=== PATIENT | female | born 1980 | race Caucasian/White ===

== ENCOUNTER 2019-03-18 18:30 | Emergency (ER) | payer BC ==
[2019-03-18 19:46] LABS: Basophils % 0.6 % (0-1.3); Hematocrit 35.7 % (36.0-45.0); Lymphocytes % 37.5 % (15.3-44.8); MPV 8.5 fL (7.6-11.3); RBC Red Blood Cell Count 4.02 M/uL (3.86-4.86)
[2019-03-18 19:54] LABS: Urine Blood 3+ (NEG); Urine Glucose NEGATIVE (NEG); Urine Protein NEGATIVE (NEG)
[2019-03-18 20:03] LABS: Potassium 3.6 mmol/L (3.5-5.1)
--- NOTE | 2019-03-18 20:22 | ER ---
Nurse's Notes [facility] Name: Libby Washburn Age: 38 yrs Sex: Female : 1980 Arrival Date: 03/18/2019 Time: 18:33 Bed 8 Private MD: Diagnosis: Abnormal uterine and vaginal bleeding, unspecified Presentation: 03/18 18:34 Presenting complaint: Patient states: i have my period Monday, yesterday, it was so hj heavy and had quater of clots, and used a new pads every hour; reports abd cramps; denies N/V; reports dizziness;. Transition of care: patient was not received from another setting of care. Onset of symptoms was March 18, 2019. Risk Assessment: Do you want to hurt yourself or someone else? Patient reports no desire to harm self or others. Initial Sepsis Screen: Does the patient meet any 2 criteria? No. Patient's initial sepsis screen is negative. Does the patient have a suspected source of infection? No. Patient's initial sepsis screen is negative. Care prior to arrival: None. 18:34 Method Of Arrival: Ambulatory 18:34 Acuity: KIRAN 3 hj Triage Assessment: 18:53 General: Appears in no apparent distress. Behavior is calm, cooperative, appropriate tw2 for age. Pain: Denies pain. Neuro: Reports dizziness. : Reports vaginal bleeding that is bright red, with clots, heavy flow. 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 - Social history:: Smoking status: . - Ebola Screening: : Patient denies travel to an Ebola-affected area in the 21 days before illness onset. Screenin:53 Abuse screen: Denies threats or abuse. Nutritional screening: No deficits noted. tw2 Tuberculosis screening: No symptoms or risk factors identified. Fall Risk None identified. Assessment: 19:25 General: Appears in no apparent distress. Behavior is calm, cooperative, anxious. Pain: ak1 Denies pain. Neuro: No deficits noted. Cardiovascular: No deficits noted. Respiratory: No deficits noted. GI: No signs and/or symptoms were reported involving the gastrointestinal system. : pt reports heavy vaginal bleeding. pt stated 1 pad per hour. pt has appointment with NEWS CAMERA PERSON Monday. : Reports vaginal bleeding that is heavy flow. EENT: No signs and/or symptoms were reported regarding the EENT system. Derm: No signs and/or symptoms reported regarding the dermatologic system. Musculoskeletal: No signs and/or symptoms reported regarding the musculoskeletal system. 20:30 Reassessment: Patient appears in no apparent distress at this time. No changes from ak1 previously documented assessment. Patient and/or family updated on plan of care and expected duration. Pain level reassessed. Patient is alert, oriented x 3, equal unlabored respirations, skin warm/dry/pink. Vital Signs: 18:36 BP 140 / 72; Pulse 86; Resp 18; Temp 98.4(TE); Pulse Ox 100% on R/A; Weight 88.45 kg; hj Height 5 ft. 1 in. (154.94 cm); Pain 5/10; 20:29 BP 119 / 77; Pulse 76; Resp 18; Temp 98.6; Pulse Ox 97% on R/A; Pain 0/10; ak1 18:36 Body Mass Index 36.84 (88.45 kg, 154.94 cm) ED Course: 18:33 Patient arrived in ED. rg4 18:36 Triage completed. hj 18:36 Arm band placed on right wrist. hj 18:42 Bed in low position. Call light in reach. tw2 18:49 Julio C Block NP is PHCP. pm1 18:49 Avni Naqvi MD is Attending Physician. pm1 19:12 Bernarda Telles, RN is Primary Nurse. ak1 19:24 Initial lab(s) drawn, by la, sent to lab. Urine collected: clean catch specimen. ak1 Inserted saline lock: 20 gauge in right antecubital area, using aseptic technique. Blood collected. 19:27 No provider procedures requiring assistance completed. ak1 20:30 IV discontinued, intact, bleeding controlled, No redness/swelling at site. Pressure ak1 dressing applied. Administered Medications: No medications were administered Outcome: 20:21 Discharge ordered by . pm1 20:30 Discharged to home ambulatory, with family. ak1 20:30 Condition: good 20:30 Discharge instructions given to patient, family, Instructed on discharge instructions, follow up and referral plans. Demonstrated understanding of instructions, follow-up care. 20:30 Patient left the ED. ak1 Signatures: Bernarda Telles RN RN ak1 Stevo Morales RN RN hj Julio C Block NP STRATEGIC PLANNING MANAGER pm1 Stacey Cheema RN RN tw2 Lily Dickson rg4 Corrections: (The following items were deleted from the chart) 18:38 18:36 Pulse 86bpm; Resp 18bpm; Pulse Ox 100% RA; Temp 98.4F Temporal; 88.45 kg; Height hj 5 ft. 1 in.; BMI: 36.8; Pain 5/10; hj
--- NOTE | 2019-03-18 20:23 | EDPHYS ---
Physician Documentation [facility] Name: Libby Washburn Age: 38 yrs Sex: Female : 1980 Arrival Date: 03/18/2019 Time: 18:33 Bed 8 Private MD: ED Physician Avni Naqvi HPI: 03/18 19:18 This 38 yrs old Female presents to ER via Ambulatory with complaints of pm1 Vaginal Bleeding, Dizziness. 19:18 The patient presents with vaginal bleeding that is heavy, with clots. pm1 19:18 Onset: The symptoms/episode began/occurred yesterday. Modifying factors: The symptoms pm1 are alleviated by nothing, the symptoms are aggravated by nothing. Associated signs and symptoms: Pertinent positives: dizziness, Pertinent negatives: dysuria, fever. Severity of symptoms: in the emergency department the symptoms are unchanged. The patient is sexually active, reportedly has a single partner. The patient's method of control includes with vasectomy 15 years ago. The patient has experienced similar episodes in the past, a few times. Family history of early menopasue. 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 - Social history:: Smoking status: . - Ebola Screening: : Patient denies travel to an Ebola-affected area in the 21 days before illness onset. ROS: 19:18 Positive for vaginal bleeding, Negative for urinary symptoms. pm1 19:18 Constitutional: Negative for fever, chills, and weight loss, Eyes: Negative for injury, pain, redness, and discharge, ENT: Negative for injury, pain, and discharge, Neck: Negative for injury, pain, and swelling, Cardiovascular: Negative for chest pain, palpitations, and edema, Respiratory: Negative for shortness of breath, cough, wheezing, and pleuritic chest pain. 19:18 Back: Negative for injury and pain, : Negative for injury, bleeding, discharge, and swelling, MS/Extremity: Negative for injury and deformity, Skin: Negative for injury, rash, and discoloration, Neuro: Negative for headache, weakness, numbness, tingling, and seizure. 19:18 Abdomen/GI: Positive for abdominal cramps, with normal menses. Exam: 19:18 Constitutional: This is a well developed, well nourished patient who is awake, alert, pm1 and in no acute distress. Head/Face: Normocephalic, atraumatic. Neck: Trachea midline, no thyromegaly or masses palpated, and no cervical lymphadenopathy. Supple, full range of motion without nuchal rigidity, or vertebral point tenderness. No Meningismus. Chest/axilla: Normal chest wall appearance and motion. Nontender with no deformity. No lesions are appreciated. Cardiovascular: Regular rate and rhythm with a normal S1 and S2. No gallops, murmurs, or rubs. Normal PMI, no JVD. No pulse deficits. Respiratory: Lungs have equal breath sounds bilaterally, clear to auscultation and percussion. No rales, rhonchi or wheezes noted. No increased work of breathing, no retractions or nasal flaring. Abdomen/GI: Soft, non-tender, with normal bowel sounds. No distension or tympany. No guarding or rebound. No evidence of tenderness throughout. Back: No spinal tenderness. No costovertebral tenderness. Full range of motion. Skin: Warm, dry with normal turgor. Normal color with no rashes, no lesions, and no evidence of cellulitis. MS/ Extremity: Pulses equal, no cyanosis. Neurovascular intact. Full, normal range of motion. 19:18 Neuro: Orientation: is normal, Motor: is normal, moves all fours, Gait: is steady, at a normal pace, without difficulty. Vital Signs: 18:36 BP 140 / 72; Pulse 86; Resp 18; Temp 98.4(TE); Pulse Ox 100% on R/A; Weight 88.45 kg; hj Height 5 ft. 1 in. (154.94 cm); Pain 5/10; 20:29 BP 119 / 77; Pulse 76; Resp 18; Temp 98.6; Pulse Ox 97% on R/A; Pain 0/10; ak1 18:36 Body Mass Index 36.84 (88.45 kg, 154.94 cm) MDM: 18:55 Patient medically screened. [facility] 20:05 Data reviewed: vital signs. Data interpreted: Pulse oximetry: on room air is 100 %. pm1 Interpretation: normal. Counseling: I had a detailed discussion with the patient and/or guardian regarding: lab results. 20:05 Counseling: I had a detailed discussion with the patient and/or guardian regarding: the pm1 historical points, exam findings, and any diagnostic results supporting the discharge/admit diagnosis, the need for outpatient follow up, for definitive care, an OB/Gyne specialist, to return to the emergency department if symptoms worsen or persist or if there are any questions or concerns that arise at home. ED course: VSS, Patient without anemia. Will discharge patient home to follow up with paper cutter operator for further evaluation . 03/18 19:09 Order name: CBC with Diff; Complete Time: 19:56 pm1 03/18 19:09 Order name: BMP; Complete Time: 20:04 pm1 03/18 18:50 Order name: Urine Dipstick-Ancillary (obtain specimen); Complete Time: 18:59 pm1 03/18 18:50 Order name: Urine Test (obtain specimen); Complete Time: 18:59 pm1 03/18 19:14 Order name: Urine Dipstick--Ancillary (enter results); Complete Time: 19:56 ag4 03/18 19:14 Order name: Urine --Ancillary (enter results); Complete Time: 19:56 ag4 03/18 19:09 Order name: IV Saline Lock; Complete Time: 19:24 pm1 Administered Medications: No medications were administered Disposition: 03/19 06:47 Co-signature as Attending Physician, Avni Naqvi MD I agree with the assessment and marietta plan of care. Disposition: 03/18/19 20:21 Discharged to Home. Impression: Abnormal uterine and vaginal bleeding, unspecified. - Condition is Stable. - Discharge Instructions: Abnormal Uterine Bleeding. - Medication Reconciliation Form, Thank You Letter, Antibiotic Education, Prescription Opioid Use form. - Work release form (03/18/19 20:31). ak1 - Follow up: Emergency Department; When: As needed; Reason: Worsening of condition. Follow up: Private Physician; When: 2 - 3 days; Reason: Recheck today's complaints, Continuance of care, Re-evaluation by your physician. - Problem is new. - Symptoms have improved. Signatures: Dispatcher [employer] Avni Ewing MD MD cha Krenek, Amber, RN RN ak1 Stevo Morales RN RN Julio C Beavers NP EMPLOYMENT OFFICER pm1 Stacey Cheema RN RN tw2 Corrections: (The following items were deleted from the chart) 03/18 20:30 20:21 03/18/2019 20:21 Discharged to Home. Impression: Abnormal uterine and vaginal ak1 bleeding, unspecified. Condition is Stable. Forms are Medication Reconciliation Form, Thank You Letter, Antibiotic Education, Prescription Opioid Use. Follow up: Emergency Department; When: As needed; Reason: Worsening of condition. Follow up: Private Physician; When: 2 - 3 days; Reason: Recheck today's complaints, Continuance of care, Re-evaluation by your physician. Problem is new. Symptoms have improved. pm1
== END 2019-03-18 20:30 | disposition home or self-care (01) ==
LOC: ER 18:30
DX: N93.9 Abnormal uterine and vaginal bleeding, unspecified (principal); E78.5 Hyperlipidemia, unspecified
CPT/HCPCS: 36415; 80048; 81003; 81025; 85025; 99283

== ENCOUNTER 2019-07-18 06:14 | Day surgery (SDC) | payer BC ==
[2019-07-15 10:32] LABS: Urine Appearance CLEAR; Urine Bilirubin NEGATIVE (NEG); Urine Blood 1+ (NEG); Urine Color YELLOW; Urine Glucose NEGATIVE (NEG); Urine Protein NEGATIVE (NEG); Urine Specific Gravity 1.015 (1.005-1.030); Urine Urobilinogen 0.2 mg/dL (0.2-1.0); Urine pH 7.5 (5.0-7.0)
[2019-07-15 10:35] LABS: Absolute Lymphocytes (CBC) 2.2 K/uL (0.7-4.9); Basophils % 0.5 % (0-1.3); Hematocrit 42.1 % (36.0-45.0); Lymphocytes % 37.4 % (15.3-44.8); RBC Red Blood Cell Count 4.77 M/uL (3.86-4.86)
[2019-07-15 10:37] LABS: Urine Microscopic Reflex ORDER UMIC
[2019-07-15 11:42] LABS: Urine Bacteria <20 /HPF (<20); Urine Culture Reflex Order NOT NEEDED; Urine RBC <5 /HPF (NONE SEEN)
[~2019-07-18 06:14] MED LIST: Ringers Lactate 0 ML IV ONE; SCOPOLAMINE HYDROBROMIDE PATCH TD ONE
[2019-07-18 06:34] LABS: Specific Gravity 1.015 (1.005-1.030)
[2019-07-18] MEDS ORDERED: SCOPOLAMINE HYDROBROMIDE PATCH TD ONE (06:52)
[2019-07-18] MEDS ORDERED: Ringers Lactate 1,000 ML IV ONE ×2 (06:52→09:16)
[2019-07-18] MEDS ORDERED: CEFAZOLIN/SWI 2gm 2 GM/20 ML SYR ONE (06:53)
[2019-07-18] MEDS ORDERED: propofoL 200 MG/20 ML VIAL IV ONE (07:05)
[2019-07-18] MEDS ORDERED: MIDAZOLAM HCL 2 MG/2 ML INJ ONE (07:05)
[2019-07-18] MEDS ORDERED: ROCURONIUM 50 MG/5 ML VIAL IV ONE ×2 (07:05→10:06)
[2019-07-18] MEDS ORDERED: dexAMETHasone 10 MG/ML VIAL ONE (07:05)
[2019-07-18] MEDS ORDERED: ONDANSETRON 4 MG/2 ML VIAL ONE ×2 (07:05→11:11)
[2019-07-18] MEDS ORDERED: GLYCOPYRROLATE 0.2 MG/ML SYR ONE ×2 (07:05→10:18)
[2019-07-18] MEDS ORDERED: LIDOCAINE 2% MPF 5 ML VIAL ONE (07:05)
[2019-07-18] MEDS ORDERED: FENTANYL CITR 250 MCG/5 ML ONE (07:05)
[2019-07-18] MEDS ORDERED: BUPIVACAINE 0.25% PF 30 ML VIAL ONE (07:09)
[2019-07-18] MEDS ORDERED: CEFAZOLIN/SWI 1gm 1 GM/10 ML SYR ONE (07:43)
[2019-07-18] MEDS ORDERED: VASOPRESSIN 20 UNIT/ML VIAL ONE (10:15)
[2019-07-18] MEDS ORDERED: NEOSTIGMINE 1 MG/ML -10 ML VIAL ONE (10:18)
[2019-07-18] MEDS ORDERED: KETOROLAC 30 MG/ML INJ ONE (10:18)
[2019-07-18] MEDS: HYDROMORPHONE HCL 1 MG/ML INJ ONE ×2 (11:11→11:17)
[2019-07-18] MEDS ORDERED: PROMETHAZINE 25 MG/ML VIAL ONE (11:22)
[2019-07-18] MEDS ORDERED: HYDROMORPHONE HCL 1 MG/ML INJ ONE (11:25)
[2019-07-18] MEDS ORDERED: HYDROCODONE/APAP 5/325 MG TAB ONE (15:05)
[2019-07-18 16:12] VITALS: BP 155/72; O2SAT 100
[2019-07-18 19:37] VITALS: TEMP 97.8
--- NOTE | 2019-07-18 22:20 | OP ---
Date of Procedure: 07/18/2019 Surgeon: Marly Carter MD [employer] Display Builder: Kelsea Walker Preoperative Diagnoses: Abnormal uterine bleeding (AUB -- A/O), menorrhagia, left lower quadrant gaurang n and dysmenorrhea, stress urinary incontinence and overactive bladder. Postoperative Diagnoses: Abnormal uterine bleeding (AUB -- A/O), menorrhagia, left lower quadrant pa in and dysmenorrhea, stress urinary incontinence and overactive bladder. Procedures Performed: Total laparoscopic hysterectomy, bilateral salpingectomy, mid urethral sling ( TVT-O), and cystoscopy. Anesthesia: General endotracheal. Specimens: Uterus, bilateral tubes. Complications: No complications. Drains: Yang catheter. Estimated Blood Loss: Minimal. Urine Output: 200. Indications: The patient is a 39-year-old who had heavy bleeding. She has used conservative measure s in the past before coming to me for bleeding. Recently depot medroxyprogesterone has been given, s till was bleeding after 150, so a second dose had to be given to slow her bleeding. Despite that, sean gonzalez did still bleed, has dysmenorrhea and pelvic pain. We discussed all the options about ablation tesfaye shiela oral contraceptives and depot medroxyprogesterone in a continuous fashion and an IUD. She will b e also discussed about the fact that since the conservative measures failed, hysterectomy was also an option. Since there was significant pain that she could not tolerate, treatment for bleeding alone did not seem to be a good alternative for this patient. She her situation, so she preferr ed to proceed with hysterectomy, possible removal of endometriosis found and then she also had stress leakage, so urodynamic study was performed as she had symptoms of mixed incontinence. She had sever e overactive bladder as well as very easily demonstrable urethral hypermobility and stress incontinen ce with MUCP of 66 cm of water. So, despite being low since the total amount of bladder c apacity that she had was small given her symptoms despite the mixed incontinence. We discussed about the options of continuing Kegel and treatment of overactive bladder versus treatment of mid urethral sling. Patient did understand that this was only for stress incontinence and would not be treating her overactive bladder, for which she may need long-term medication most likely. After understanding all, the patient was consented and she was brought to the OR. Procedure In Detail: 2 g of Ancef was given and she was taken back to OR and placed in supine fashio n on the operating table after general anesthesia was given. She was placed in a dorsal lithotomy po sition using Emiliano stirrups. Abdomen, vulva, vagina, and perineum were prepped and draped in a steri le fashion. Yang was placed to drain the bladder then attached to the cysto tubing for retrograde f illing. Then, speculum was placed to expose the cervix. Anterior lip was grasped with 2 Allis clamp s and a large VCare uterine manipulator introduced and fixed in place. This area was then draped. 1 cm infraumbilical incision was made with a scalpel. There was a lot of scar tissue here from her p rior laparoscopic incision for appendectomy. Fascia was incised directly, tagged with 0 Vicryl sutur es, peritoneum entered sharply. S retractor was placed. Louise introduced, insufflated appropriatel y. Upper abdominal surface and lower abdominal surfaces inspected unremarkable. Five left lower martha drant and 10 suprapubic ports were placed under direct vision. No peritoneal endometriosis was visua lized. Enlarged uterus. There is a plan to perform hysterectomy. LigaSure was used to take down the utero-ovarian ligament, mesosalpinx, round ligament, anterior and posterior broad ligaments. Vessels were skeletonized. Anterior peritoneum was raised to create a bl adder flap. Similar dissection was performed on the opposite side and skeletonized on this side, bip olar basket tip was used to cauterize the vessels on both sides, first on the right then on the left as well as the cardinal ligaments and proceeded to take down the vessels with the help of the LigaSur e. Then, the uterine artery on the patient's side had to be grasped and cauterized again for excelle nt hemostasis. Then, the cardinal ligaments were also taken down. Then, similar dissection performed on the opposit e side on the left side. Thick vessels taken and cardinal ligaments were taken down. Then, dissecti on was performed to expose the anterior part of the cup and once this was done, then monopolar hook b lade was used to perform a circumferential colpotomy and the uterus was retrieved through the vagina. After thorough irrigation and suction, there was minimal bleeding at the edges of the vaginal cuff and these were cauterized with the help of bipolar tips. However, the rest were taken care of with t he sutures. 2-0 Vicryl sutures were placed at both angles and the angle folded in and the suture tie d outside and 3 [id number] sutures were placed in a buried fashion, so they brought the edges of th is together. The second stitch from the lateral aspect was passed through the distal uterosacral lig ament and re-attached to the vaginal cuff as it was being repaired. Ureters had no evidence of electrical, mechanical, or thermal injury as well as the bladder. Tubes w ere removed and ovaries were left in place. The irrigation suction of the pelvic cavity was unremarkable. Trocars were removed under direct visi on. Fascia at the umbilicus was closed with the help of 0 Vicryl, tagged sutures tied at both ends a nd simple 0 Vicryl stitch at the suprapubic site. All skin incisions were closed with the help of 4- 0 Vicryl vaginally. The occulusion sponge was removed. Yang was retracted superiorly after clampin g it and detaching from the drainage bag. Speculum was placed to expose the anterior vaginal wall, grasped from the mid urethral area slightly more closer to the proximal end then the distal. Then, 1 cm incision was made after injecting with v asopressin 20 units mixed in 20 cc of normal saline, 10 cc was injected. After incision was made, dissection was carried to the lateral aspects on each side to the ipsilatera l obturator space. Once the membrane was perforated while dissecting at a 45 degree angle to the hor izontal and vertical planes. Then, there was suspected perforation of the vaginal epithelium, which on inspection did not appear to be large. This was very tiny and maybe 2 to 3 mm, so this was left a lone. Once the tract was created in the proper fashion, then left side was done as well without any problems. Then, TVT was opened, wing guide was placed on the left side, so I passed in usual fashion same thing on the right side without any problems. There was no perforation through the vaginal epi thelium. The vaginal epithelium completely intact and visualized the sling from the outside through 2 mm disruption, so there is no need to fix this. Once the sling was patched on both sides, the wood ths were used to tension the sling in the middle with the help of the Metzenbaum scissors. Then, the sheaths were pulled out and the sling was left in place. Mesh was then trimmed, made flush with the skin on both groin. Made sure that this was at least in the horizontal line dropped at the level of the external meatus, 2 cm lateral to the groin fold and definitely below the adductor longus tendon. The closure of the anterior vaginal incision was with 3-0 Vicryl in a continuous running horizontal m attress fashion. There was excellent hemostasis. Thorough irrigation and suction were performed bef ore the mesh was closed. Then, the Yang was removed. Cystoscopy was performed. No evidence of any trauma to the bladder with no perforation from the sling and both ureteric orifices were well visual ized with strong jets of urine were seen. Cystoscopy was negative. No tumors, diverticula, or stone s. Bladder unremarkable. Yang was replaced. Instrument, needle, and sponge counts were done and w ere correct at the end of the case. EBL was minimal. She will have a voiding trial in 2 hours and jewel renteria will be discharged home without a catheter if she passes her voiding trial. She has an appointme nt to see us back in 1 week. JAMIE Voice ID: [id number] Report ID: [id number]
== END 2019-07-18 19:33 | disposition home or self-care (01) ==
LOC: OR 06:14
PROVIDERS: ATTEND Obstetrics & Gynecology
PROC: 0UT74ZZ Resection of Bilateral Fallopian Tubes, Percutaneous Endoscopic Approach (ICD-10-PCS; 2019-07-18)
PROC: 0TSD0ZZ Reposition Urethra, Open Approach (ICD-10-PCS; 2019-07-18)
PROC: 0UT94ZZ Resection of Uterus, Percutaneous Endoscopic Approach (ICD-10-PCS; principal; 2019-07-18 07:30)
DX: N92.1 Excessive and frequent menstruation with irregular cycle (principal); N39.3 Stress incontinence (female) (male); N94.6 Dysmenorrhea, unspecified; N83.8 Other noninflammatory disorders of ovary, fallopian tube and broad ligament; N32.81 Overactive bladder; K21.9 Gastro-esophageal reflux disease without esophagitis; F41.9 Anxiety disorder, unspecified; Z83.3 Family history of diabetes mellitus; Z82.49 Family history of ischemic heart disease and other diseases of the circulatory system
CPT/HCPCS: 85025; 36415; 86900; 86850; 81025; 86901; 88307; 58571; 57288; J2704; J2710; J2550; J2250; J3010; J1100; J1170 ×2; J0690 ×2; J7120 ×2; J2405 ×2; 81003; 81015